=== PATIENT | female | born 1985 | race Caucasian/White ===

== ENCOUNTER 2017-05-11 12:55 | Emergency (ER) | payer OTHER ==
[2017-05-11] MEDS ORDERED: HYDROmorphone 0.5 MG/0.5 ML SYRINGE IVP STA ×2 (13:20)
--- NOTE | 2017-05-11 13:26 | ED ---
General Adult HPI - General Chief complaint: Extremity Injury, Upper Stated complaint: Fell off horse Time Seen by Provider: 05/11/17 13:11 Source: patient, EMS, RN notes reviewed Mode of arrival: EMS Limitations: no limitations - History of Present Illness Initial comments: Patient 32-year-old female who presents emergency room today by EMS, the chief complaint of a fall from a horse that occurred just prior to arrival. She does admit that she was riding a horse going into a turn when she fell off to the left side. She states her arm was tucked underneath her. She states that it hard on the ground. She states she felt a crack. She does admit to pain to the left upper arm. Denies any head injury or loss of consciousness. Does admit to some left-sided hip pain. Patient denies any other complaints or symptoms. Patient denies any recent fever, chills, shortness of breath, chest pain, back pain, abdominal pain, nausea or vomiting, numbness or tingling, dysuria or hematuria, constipation or diarrhea, headaches or visual changes, or any other complaints. - Related Data Previous Rx's Medication Instructions Recorded Ibuprofen [Motrin] 800 mg PO Q6HR #30 tab 05/11/17 oxyCODONE-APAP 5-325MG [Percocet 1 tab PO Q6HR PRN #20 tab 05/11/17 5-325 mg] Allergies Allergy/AdvReac Type Severity Reaction Status Date / Time acetaminophen [From Vicodin] Allergy Itching Verified 05/11/17 13:22 hydrocodone [From Vicodin] Allergy Itching Verified 05/11/17 13:22 Review of Systems ROS Statement: Those systems with pertinent positive or pertinent negative responses have been documented in the HPI. ROS Other: All systems not noted in ROS Statement are negative. Past Medical History Past Medical History: No Reported History Additional Past Medical History / Comment(s): migraines History of Any Multi-Drug Resistant Organisms: None Reported Past Surgical History: No Surgical Hx Reported Past Psychological History: No Psychological Hx Reported Smoking Status: Never smoker Past Alcohol Use History: Occasional Past Drug Use History: None Reported General Exam - General Exam Comments Initial Comments: General: The patient is awake and alert. Eye: Pupils are equal, round and reactive to light, extra-ocular movements are intact. No nystagmus. There is normal conjunctiva bilaterally. No signs of icterus. Ears, nose, mouth and throat: There are moist mucous membranes and no oral lesions. Neck: The neck is supple, there is no tenderness or JVD. Cardiovascular: There is a regular rate and rhythm. No murmur, rub or gallop is appreciated. Respiratory: Lungs are clear to auscultation, respirations are non-labored, breath sounds are equal. No wheezes, stridor, rales, or rhonchi. Gastrointestinal: Soft, non-distended, non-tender abdomen without masses or organomegaly noted. There is no rebound or guarding present. No CVA tenderness. Bowel sounds are unremarkable. Musculoskeletal: Patient has obvious deformity of the left humerus. She shows good range of motion of the left hand and wrist is able to fully extend and flex in these areas. Her sensations are intact throughout. Pulses are equal bilaterally 2+. Patient has normal appearance of left hip. Mild tenderness to the lateral aspect. Negative logroll maneuver. Shows good range of motion. Full range of motion of the right upper and lower extremity. Normal appearance of cervical, thoracic, lumbar spine with no step-offs forms appreciated. No tenderness in midline. Neurological: A&O x 3. CN II-XII intact, There are no obvious motor or sensory deficits. Coordination appears grossly intact. Speech is normal. Skin: Skin is warm and dry and no rashes or lesions are noted. Psychiatric: Cooperative, appropriate mood & affect, normal judgment. Limitations: no limitations Course Vital Signs 05/11/17 05/11/17 13:01 14:26 Temperature 98.9 F 97.5 F L Pulse Rate 62 77 Respiratory 16 18 Rate Blood Pressure 131/95 114/83 O2 Sat by Pulse 96 97 Oximetry Medical Decision Making - Medical Decision Making Case discussed in detail with attending physician Dr. Chavira. Patient reexamined at this time shows no signs of distress resting comfortably. Patient 's x-ray of the left humerus shows midshaft fracture. She has been placed in a arm sling with a shoulder immobilizer. Patient's x-ray of the left hip is also negative. At this time patient feels comfortable being discharged home. She is neurovascularly intact. Signs and symptoms of concern were discussed with the patient and reason for return. She states understanding along with family said bedside. She'll be given pain medications. States that makes her itchy but she has Percocet. Patient is advised to return to emergency room if any symptoms increase or worsen. Advised follow-up with orthopedics over the next 1 -2 days. Disposition Clinical Impression: Humerus fracture Disposition: HOME SELF-CARE Condition: Stable Instructions: Arm Fracture in Adults (ED) Additional Instructions: Please use medication as discussed. Please follow-up with orthopedic in the next 2 days. Please return to emergency room if the symptoms increase or worsen or for any other concerns. Prescriptions: Ibuprofen [Motrin] 800 mg PO Q6HR #30 tab oxyCODONE-APAP 5-325MG [Percocet 5-325 mg] 1 tab PO Q6HR PRN #20 tab PRN Reason: Pain Referrals: Nonstaff,Physician [Primary Care Provider] - 1-2 days Time of Disposition: 15:58
--- NOTE | 2017-05-11 13:54 | XR ---
EXAMINATION TYPE: XR humerus LT DATE OF EXAM: 05/11/2017 CLINICAL HISTORY: Fall off of a horse with left humeral pain. TECHNIQUE: Two views of the left humerus are obtained. COMPARISON: None. FINDINGS: There is a transversely oriented apex medial and anteriorly angulated minimally foreshorten ed fracture of the mid humeral diaphysis on the left. Overlying soft tissue swelling is most pronounc ed laterally. No radiopaque foreign body. Probable vascular groove is seen in the proximal humeral me taphysis medially on a single image only that does not extend through the lateral cortex. No displace d rib fractures are seen in the visualized ribs. Visualized thoracic vertebral bodies maintain normal vertebral body heights. IMPRESSION: Noncomminuted, transversely oriented, minimally foreshortened, and apex anteromedially an gulated mid diaphyseal left humeral fracture.
[2017-05-11] MEDS ORDERED: KETOROLAC 30 MG/ML 1 ML VIAL IVP STA (14:01)
[2017-05-11 14:27] VITALS: RESP 18
--- NOTE | 2017-05-11 15:48 | XR ---
EXAMINATION TYPE: XR pelvis AP view DATE OF EXAM: 05/11/2017 COMPARISON: NONE HISTORY: 32-year-old female with pain after fall off horse today FINDINGS: Either tiny os acetabuli or degenerative labral ossification on both sides. Hips appear symmetric and intact. Pubic symphysis is intact. SI joints appear symmetrical. Smooth delineation to the arcuate l velma of the sacrum. No acute fracture or dislocation. Bilateral Essure devices. IMPRESSION: No acute osseous abnormality seen.
[2017-05-11 16:19] VITALS: BP 119/79; PULSE 106; TEMP 98.2
== END 2017-05-11 16:18 | disposition home or self-care (01) ==
LOC: EC 12:55
DX: S42.302A Unspecified fracture of shaft of humerus, left arm, initial encounter for closed fracture (principal); M25.552 Pain in left hip; Z88.5 Allergy status to narcotic agent; Z53.20 Procedure and treatment not carried out because of patient's decision for unspecified reasons; V80.010A Animal-rider injured by fall from or being thrown from horse in noncollision accident, initial encounter; Y93.52 Activity, horseback riding
CPT/HCPCS: 72170; 73060; 99284; 96374; 96375; J1885; J1170